=== PATIENT | male | born 2005 | race Two or more races ===

== ENCOUNTER 2025-05-15 20:32 | Emergency (ER) | payer MEDICAID, OTHER ==
[~2025-05-15] VITALS: Ht 175.3 cm; Wt 110.0 kg
[2025-05-15 20:33] VITALS: RESP 20
[2025-05-16 00:52] VITALS: BP 120/79; PULSE 84; TEMP 98.3; O2SAT 95
[2025-05-16] MEDS ORDERED: IBUP-1456 PO (00:55)
--- NOTE | 2025-05-16 00:57 | ED.PDOC ---
Musculoskeletal HPI Comments 20-year-old male presents to ER with complaints of left foot pain x4 days. Patient reports that he stands on his feet for "several hours a day" at work and x4 days has been experiencing pain/swelling localized to plantar surface of left foot. He rates his current pain a 10/10 localized to plantar surface of left foot with radiation towards the left ankle. Denies use of medications for current symptoms and notes that he does wear tight-fitted boots for work. Denies numbness/tingling, fever, trauma/falls or any further symptoms/complaints Chief Complaint: Lower Extremity Time Seen by MD: 23:32 Primary Care Provider: UNKNOWN Reviewed Notes: Nurses Notes, Medications, Allergies Allergies: Coded Allergies: NO KNOWN ALLERGIES (Unverified , 05/15/25) Home Meds Active Scripts Ibuprofen (Ibuprofen) 800 Mg Tab, 1 TAB PO TID PRN, #30 TAB 0 Refills Prov:ABRAM SNIDER 05/16/25 Information Source: Patient Mode of Arrival: Wheelchair Past Medical History PAST MEDICAL HISTORY: Denies Surgical History: Denies all surgeries Family History Family History: Unknown Social History Smoker: Non-Smoker Alcohol: Denies ETOH Use Drugs: Denies Drug Use Lives In: Home Constitutional: denies: chills, diaphoresis, fatigue, fever, malaise, sweats, weakness, others EENTM: denies: blurred vision, double vision, ear bleeding, ear discharge, ear drainage, ear pain, ear ringing, eye pain, eye redness, hearing loss, mouth pain, mouth swelling, nasal discharge, nose bleeding, nose congestion, nose pain, photophobia, tearing, throat pain, throat swelling, voice changes, others Respiratory: denies: cough, hemoptysis, orthopnea, SOB at rest, shortness of breath, SOB with excertion, stridor, wheezing, others Cardiovascular: denies: chest pain, dizzy spells, diaphoresis, Dyspnea on exe rtion, edema, irregular heart beat, left arm pain, lightheadedness, palpitations, PND, syncope, others Gastrointestinal: denies: abdomen distended, abdominal pain, blood streaked bowels, constipated, diarrhea, dysphagia, difficulty swallowing, hematemesis, melena, nausea, poor appetite, poor fluid intake, rectal bleeding, rectal pain, vomiting, others Genitourinary: denies: burning, dysuria, flank pain, frequency, hematuria, incontinence, penile discharge, penile sore, pain, testicle pain, testicle swelling, urgency, others Neurological: denies: dizziness, fainting, headache, left sided numbness, left sided weakness, numbness, paresthesia, pre-existing deficit, right sided numbness, right sided weakness, seizure, speech problems, tingling, tremors, weakness, others Musculoskeletal: reports: others (As stated in HPI) Integumetry: reports: others (As stated in HPI) Allergic/Immunocompromised: denies: Difficulty Healing, Frequent Infections, Hives, Itching, others Hematologic/Lymphatic: denies: anemia, blood clots, easy bleeding, easy bruising, swollen glands, others Endocrine: denies: excessive hunger, excessive sweating, excessive thirst, excessive urination, flushing, intolerance to cold, intolerance to heat, unexplained weight gain, unexplained weight loss, others Psychiatric: denies: anxiety, bipolar disorder, depression, hopeless, panic disorder, schizophrenia, sleepless, suicidal, others Physical Exam General Appearance: No Apparent Distress, Obese HEENT: PERRL/EOMI Neck: Full Range of Motion, Non-Tender, Normal Respiratory: Chest Non-Tender, Lungs Clear, No Accessory Muscle Use, No Respiratory Distress, Normal Breath Sounds Cardiovascular: No Murmur, No Gallop, Regular Rate/Rhythm Breast Exam: Deferred Gastrointestinal: NOT DONE Genitalia: Deferred Pelvic: Deferred Rectal: Deferred Extremities: Normal capillary refill, Normal range of motion Musculoskeletal : Extremity Location: Foot (TTP/mild swelling noted to plantar surface of left foot/left calcaneus. No erythema/further skin changes noted. No TTP to left ankle noted. Pulses intact. Gait slow due to pain localized to left foot) Neurologic: Alert, No Motor Deficits, Normal Affect, Normal Mood, No Sensory Deficits Cerebellar Function: Normal Reflexes: Normal Skin: Dry, Normal Color, Warm Peripheral Pulses: 2+ dorsalis pedis (R), 2+ dorsalis pedis (L), 2+ Radial (R), 2+ Radial (L), 2+ Brachial (R), 2+ Brachial (L) Lymphatic: No Adenopathy Was a procedure done? Was a procedure done?: No Sedation Sedation?: No Differential Diagnosis EXT Differential Diagnosis: Cellulitis, Fracture, Dislocation, Neurovascular injury X-Ray, Labs, Meds, VS Vital Signs Date Time Temp Pulse Resp B/P (MAP) Pulse Ox O2 Delivery O2 Flow Rate FiO2 05/16/25 00:52 98.3 84 120/79 (93) 95 98.3 05/16/25 00:52 84 95 Room Air 05/15/25 20:33 98.4 130 20 139/78 97 98.4 PATIENT: KELSEY DANG JACCT: [id number]: [id number] : 2005 LOC: ER ROOM / BED: / AGE / SEX: 20 / M ADM STATUS: REG ER SERVICE ORDERING PHYSICIAN: ABRAM SNIDER PROCEDURE(s): LFOOT - L FOOT 3 VIEW XRAY REASON: left foot pain ORDER NUMBER(s): [id number], ACCESSION NUMBER(s): [id number] CLINICAL INDICATION: left foot pain TECHNIQUE: 2 views XY L FOOT 3 VIEW XRAY Comparison: None FINDINGS: Oblique and lateral views provided. No evidence of acute fracture, joint malalignment or significant degenerative change. Soft tissue swelling throughout the forefoot. IMPRESSION: 1. Soft tissue swelling without acute osseous finding of the left foot. Note that an AP view was not provided. ATED BY: ZULEIMA ROSARIO MD DICTATED DATE/TIME: 05/16/25151 SIGNED BY: ZULEIMA ROSARIO MD SIGNED DATE/TIME: 05/16/25151 CC: Left foot x-ray reviewed Rest, ice and importance of proper fitted shoes along with heel/arch support inserts discussed and advised Advised to follow up with PCP and podiatry in 1-2 days Patient verbalized understanding and agreeable with current plan of care Advised to return to ER immediately if symptoms worsen Images Reviewed?: Images reviewed and evaluated by me Time of 1ST Reevaluation: 00:38 Reevaluation 1ST: N/A Patient Education/Counseling: Diagnosis, Treatment, Prognosis, Need For Follow Up Family Education/Counseling: No Family Present Departure 1 Departure Time of Disposition: 00:54 Impression: Primary Impression: Sprain of foot, left Qualified Codes: S93.602A - Unspecified sprain of left foot, initial encounter Disposition: HOME / SELF CARE / HOMELESS Condition: Stable e-Prescriptions Ibuprofen (Ibuprofen) 800 Mg Tab 1 TAB PO TID PRN, #30 TAB 0 Refills Prov: ABRAM SNIDER 05/16/25 Discharged With: Friend Critical Care Note Critical Care Time?: No Stability Stability form required: No Heart Score Heart Score: Heart Score Response (Comments) Value History N/A 0 EKG N/A 0 Age N/A 0 Risk Factors N/A 0 Troponin N/A 0 Total 0 ABRAM SNIDER May 16, 2025 00:56
--- NOTE | 2025-05-16 01:54 | DVH ---
CLINICAL INDICATION: left foot pain TECHNIQUE: 2 views XY L FOOT 3 VIEW XRAY Comparison: None FINDINGS: Oblique and lateral views provided. No evidence of acute fracture, joint malalignment or significant degenerative change. Soft tissue swelling throughout the forefoot. IMPRESSION: 1. Soft tissue swelling without acute osseous finding of the left foot. Note that an AP view was not provided.
== END 2025-05-16 02:23 | disposition home or self-care (01) ==
LOC: ER 20:32
DX: S93.602A Unspecified sprain of left foot, initial encounter (principal); Z79.899 Other long term (current) drug therapy; X58.XXXA Exposure to other specified factors, initial encounter; Y93.89 Activity, other specified; Y92.89 Other specified places as the place of occurrence of the external cause; Y99.8 Other external cause status
CPT/HCPCS: 73630